=== PATIENT | female | born 1955 | race Caucasian/White ===

== ENCOUNTER 2021-08-23 12:42 | Emergency (ER) | payer BC ==
[~2021-08-23] VITALS: Ht 167.6 cm; Wt 78.6 kg
[2021-08-23 12:55] VITALS: BP 153/81
[2021-08-23] MEDS ORDERED: acetaminophen 325mg tablet PO ONE (14:40)
--- NOTE | 2021-08-23 14:51 | NUR ---
po med given
== END 2021-08-23 14:53 | disposition home or self-care (01) ==
LOC: ER 12:43
DX: S00.03XA Contusion of scalp, initial encounter (principal); W22.8XXA Striking against or struck by other objects, initial encounter; Y93.89 Activity, other specified; Y92.89 Other specified places as the place of occurrence of the external cause; Y99.8 Other external cause status
CPT/HCPCS: 99282